=== PATIENT | female | born 1990 | race Caucasian/White ===

== ENCOUNTER 2020-11-15 16:15 | Outpatient (CLI) | payer BC, SELFPAY ==
--- NOTE | ~2020-11-15 | XR_ITS ---
EXAMINATION: XR foot LT min 3V DATE: 11/15/2020 16:43 INDICATION: Left foot pain TECHNIQUE: Dorsoplantar, lateral, and 2 oblique views of the left foot were obtained. COMPARISON: None. FINDINGS: There is no fracture. There is elongation of the anterior process of the calcaneus. The lat eral aspect of the navicular is elongated and tapered relative to the medial portion. The soft tissue s are unremarkable. IMPRESSION: 1. 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 Reviewed, dictated and finalized at location A. AD WEAVER
== END 2020-11-15 16:16 | disposition home or self-care (01) ==
LOC: ANHIMG 16:23
PROVIDERS: PCP Family Medicine; Visit Provider Physician Assistant
DX: M79.673 Pain in unspecified foot (principal)
CPT/HCPCS: 73630

== ENCOUNTER 2022-11-20 10:33 | Emergency (ER) | payer BC, SELFPAY ==
[2022-11-20 10:44] VITALS: BP 134/84; PULSE 94; RESP 16; TEMP 37.1; O2SAT 99
--- NOTE | 2022-11-20 11:41 | ED.URI ---
HPI - URI/Sore Throat General Chief Complaint: Upper Respiratory Infection Stated Complaint: uri Time Seen by Provider: 11/20/22 11:37 Source: patient and RN notes reviewed Mode of arrival: ambulatory Limitations: no limitations History of Present Illness HPI Narrative: 32 y/o female presented for c/o cough, nasal congestion and sore throat for about 3 days. Sputum is yellow. Ears are popping. Endorses feeling slightly better today. Denies sob, wheezing, n/v/d/f/c. Taking Zyrtec and flonase. Denies known sick contacts. Tested negative for covid yesterday. MD elicited complaint: cough Related Data Home Medications Medication Instructions Recorded Confirmed No Home Medications 10/20/19 11/20/22 Allergies Allergy/AdvReac Type Severity Reaction Status Date / Time No Known Allergies Allergy Verified 11/20/22 10:55 Review of Systems Review of Systems: CONSTITUTIONAL: Denies malaise, chills, sweats, fever EYES: Denies visual changes, redness, or discharge ENT: Reports rhinorrhea, congestion, sinus pain, otalgia, sore throat CARDIOVASCULAR: Denies chest pain, palpitations, edema RESPIRATORY: Reports cough, post nasal drainage. Denies dyspnea GASTROINTESTINAL: Denies abdominal pain, nausea, vomiting, diarrhea SKIN: Denies rash or itching MUSCULOSKELETAL: Denies myalgia NEUROLOGIC: Denies headache [facility] Past Medical History Medical History (Updated 11/20/22 @ 11:47 by Amy Hernandez, MUSTAPHA) Healthy adult Family History Family History Mother Alcoholic Father Bipolar 1 disorder Social History Social History Smoking status: Never smoker Second hand tobacco smoke exposure: No Alcohol intake: current Exam Narrative: GENERAL: midly Ill-appearing, nontoxic no acute distress. HEAD: Normocephalic EYES: PERRLA, conjunctivae clear ENT: Mucous membranes moist. TM pearly delcid with dull light reflex bilaterally; no tragal tenderness. Oropharynx erythematous tonsils 2+ without lesions or exudate, no drooling, no hoarseness, no trismus, uvula midline. No tripod positioning, muffled voice, soft palate or pharyngeal wall bulging NECK: Supple. No lymphadenopathy CHEST: Clear to auscultation, breath sounds equal. No wheezing, rhonchi, rales, or stridor. No respiratory distress, speaks in full sentences. HEART: Regular rate and rhythm. No murmur heard. SKIN: Warm, dry, no rash. NEURO: Alert and oriented x3. PSYCH: Normal mood and affect Course Course Emergency Course: Patient is aware of diagnosis, understands and agrees to treatment plan. Anticipatory guidance given. Patient agrees to follow-up as directed and is aware of reasons to seek care at the emergency department. Portions of this record may have been created with voice recognition software Level of Care: Express Care Visit Vital Signs Vital signs: Vital Signs Temperature 98.7 F 11/20/22 10:44 Pulse Rate 94 11/20/22 10:44 Respiratory Rate 16 11/20/22 10:44 Blood Pressure 134/84 11/20/22 10:44 Pulse Oximetry 99 11/20/22 10:44 Oxygen Delivery Room Air 11/20/22 10:44 Temperature 98.7 F 11/20/22 10:44 Pulse Rate 94 11/20/22 10:44 Respiratory Rate 16 11/20/22 10:44 Blood Pressure 134/84 11/20/22 10:44 Pulse Oximetry 99 11/20/22 10:44 Oxygen Delivery Room Air 11/20/22 10:44 reviewed MDM - URI/Sore Throat MDM Narrative Medical decision making narrative: Negative strep result reviewed with patient. Advised supportive measures and signs/symptoms to go to the ER. Pt is appropriate for outpt treatment and f/u. Differential Diagnosis Differential diagnosis: Likely upper respiratory infection, sinusitis, viral infection, bronchitis, influenza and pharyngitis Lab Data Labs: Strep Screen Presumptive Negative *(Reference Range: Negative)*
== END 2022-11-20 11:50 | disposition home or self-care (01) ==
PROVIDERS: Emergency Provider Nurse Practitioner Family; PCP Family Medicine
DX: J06.9 Acute upper respiratory infection, unspecified (principal)
CPT/HCPCS: 87081; 87880; 99213; G0463

== ENCOUNTER 2023-03-03 11:28 | Emergency (ER) | payer BC, SELFPAY ==
--- NOTE | ~2023-03-03 | XR_ITS ---
EXAMINATION: XR chest 2V 03/03/2023 12:02 INDICATION: Cough for 3 weeks PROCEDURE: 2 view chest COMPARISON: 11/04/2018 FINDINGS: The lungs are clear. The cardiomediastinal silhouette is within normal limits. There are no pleural effusions. There is no pneumothorax suspected. IMPRESSION: 1: NO ACUTE CARDIOPULMONARY DISEASE. Reviewed, dictated and finalized at location []
[2023-03-03 11:49] VITALS: BP 137/86; PULSE 74; RESP 16; TEMP 37; O2SAT 100
--- NOTE | 2023-03-03 12:50 | ED.URI ---
HPI - URI/Sore Throat General Chief Complaint: Upper Respiratory Infection Stated Complaint: Cough Time Seen by Provider: 03/03/23 12:50 Source: patient and RN notes reviewed Mode of arrival: ambulatory Limitations: no limitations History of Present Illness HPI Narrative: 32-year-old female presented for complaint of frequent cough for 3 weeks. Cough is productive of yellow sputum. Endorses left rib and mid chest pain associated with cough. She denies associated shortness of breath, wheezing, nausea, vomiting, diarrhea, fevers or chills. Denies nasal congestion. She is taking does some and Mucinex for symptoms. Denies sick contacts. MD elicited complaint: cough Related Data Home Medications Medication Instructions Recorded Confirmed Claritin 10 mg PO DAILY 03/03/23 03/03/23 etonogestrel 0.12 mg-ethinyl 1 vag ring vaginal DIRECTED 03/03/23 03/03/23 estradiol 0.015 mg/24 hr vaginal ring Allergies Allergy/AdvReac Type Severity Reaction Status Date / Time No Known Allergies Allergy Verified 03/03/23 12:06 Review of Systems Review of Systems: CONSTITUTIONAL: Denies malaise, chills, sweats, fever EYES: Denies visual changes, redness, or discharge ENT: Denies rhinorrhea, congestion, sinus pain, otalgia, sore throat CARDIOVASCULAR: Denies chest pain, palpitations, edema RESPIRATORY: Reports cough, Denies dyspnea, post nasal drainage. GASTROINTESTINAL: Denies abdominal pain, nausea, vomiting, diarrhea SKIN: Denies rash or itching MUSCULOSKELETAL: Denies myalgia NEUROLOGIC: Denies headache [facility] Past Medical History Medical History (Updated 03/03/23 @ 13:00 by Amy Hernandez APRN) Healthy adult Family History Family History Mother Alcoholic Father Bipolar 1 disorder Social History Social History Smoking status: Never smoker Second hand tobacco smoke exposure: No Alcohol intake: current Exam Narrative: GENERAL: well-appearing, nontoxic no acute distress. HEAD: Normocephalic EYES: PERRLA, conjunctivae clear ENT: Mucous membranes moist. TMs pearly delcid with dull light reflex bilaterally; no tragal tenderness. Oropharynx without lesions or exudate NECK: Supple. No lymphadenopathy CHEST: Clear to auscultation, breath sounds equal. No wheezing, rhonchi, rales, or stridor. No respiratory distress, speaks in full sentences. HEART: Regular rate and rhythm. No murmur heard. SKIN: Warm, dry, no rash. NEURO: Alert and oriented x3. PSYCH: Normal mood and affect Course Course Emergency Course: Patient is aware of diagnosis, understands and agrees to treatment plan. Anticipatory guidance given. Patient agrees to follow-up as directed and is aware of reasons to seek care at the emergency department. Portions of this record may have been created with voice recognition software Level of Care: Express Care Visit Vital Signs Vital signs: Vital Signs Temperature 98.6 F 03/03/23 11:49 Pulse Rate 74 03/03/23 11:49 Respiratory Rate 16 03/03/23 11:49 Blood Pressure 137/86 03/03/23 11:49 Pulse Oximetry 100 03/03/23 11:49 Oxygen Delivery Room Air 03/03/23 11:49 Temperature 98.6 F 03/03/23 11:49 Pulse Rate 74 03/03/23 11:49 Respiratory Rate 16 03/03/23 11:49 Blood Pressure 137/86 03/03/23 11:49 Pulse Oximetry 100 03/03/23 11:49 Oxygen Delivery Room Air 03/03/23 11:49 reviewed MDM - URI/Sore Throat MDM Narrative Medical decision making narrative: Results of chest x-ray reviewed with patient. Discussed physical exam findings and Rx's. Advised supportive measures and signs/symptoms to go to the ER. Pt is appropriate for outpt treatment and f/u. Differential Diagnosis Differential diagnosis: Likely upper respiratory infection, sinusitis and viral infection Imaging Data Radiologist's impression: Patient: Yolanda Esquivel
== END 2023-03-03 13:05 | disposition home or self-care (01) ==
PROVIDERS: Emergency Provider Nurse Practitioner Family; PCP Family Medicine
DX: R05.9 Cough, unspecified (principal)
CPT/HCPCS: 71046; 99213; G0463

== ENCOUNTER 2023-04-20 11:18 | Emergency (ER) | payer BC, SELFPAY ==
[2023-04-20 11:37] VITALS: BP 122/86; PULSE 91; RESP 18; TEMP 36.8; O2SAT 100
--- NOTE | 2023-04-20 11:38 | ED.URI ---
HPI - URI/Sore Throat General Chief Complaint: Upper Respiratory Infection Stated Complaint: sorethroat,bilateral pain Time Seen by Provider: 04/20/23 11:38 Source: patient, RN notes reviewed and old records reviewed Mode of arrival: ambulatory Limitations: no limitations History of Present Illness HPI Narrative: 32-year-old female presents to the [facility] with complaints of bilateral ear pain, worse on the left than the right. Also has increased postnasal drainage, sore throat. Has a history of seasonal allergies and takes Claritin daily Onset (ago): day(s) (2) Related Data Home Medications Medication Instructions Recorded Confirmed Claritin 10 mg PO DAILY 03/03/23 04/20/23 etonogestrel 0.12 mg-ethinyl 1 vag ring vaginal DIRECTED 03/03/23 04/20/23 estradiol 0.015 mg/24 hr vaginal ring Allergies Allergy/AdvReac Type Severity Reaction Status Date / Time No Known Allergies Allergy Verified 04/20/23 11:43 Review of Systems Review of Systems: All systems reviewed & are unremarkable except as noted in HPI and below Constitutional: Constitutional: Reports no additional constitutional complaints Eyes: Eyes: Reports no additional eye complaints ENT: Reports as per HPI, Reports otalgia and Reports sore throat Cardiovascular: Cardiovascular: Reports no additional cardiovascular complaints, Denies chest pain and Denies dyspnea Respiratory: Respiratory: Reports no additional respiratory complaints, Denies chest congestion, Denies cough and Denies dyspnea Gastrointestinal: Gastrointestinal: Reports no additional gastrointestinal complaints, Denies abdominal pain, Denies nausea and Denies vomiting Musculoskeletal: Musculoskeletal: Reports no additional musculoskeletal complaints Integumentary/Breasts: Skin/Breast: Reports system reviewed and no additional complaints, except as docu Neurologic: Reports system reviewed and no additional complaints, except as documented Psychiatric: Psychiatric: Reports no additional psychiatric complaints Allergic/Immunologic: Allergic/Immunologic: Reports no additional allergic/immunologic complaints PMFSH Past Medical History Medical History Healthy adult Family History Family History Mother Alcoholic Father Bipolar 1 disorder Social History Social History Smoking status: Never smoker Second hand tobacco smoke exposure: No Alcohol intake: current Comments At the time of my signature, I reviewed and agree with the nursing past medical, surgical, social, and family history. There is no relevant family history pertinent to the patient complaint. Exam Const: General: cooperative, healthy appearing, comfortable, no acute distress, well developed, alert and well nourished Nutritional Appearance: well nourished Orientation/consciousness: patient oriented x3 Limitations: no limitations HENMT: Head: normal to inspection Ears: hearing grossly normal bilaterally, external ears normal, TM normal on the right, EAC's normal and TM abnormal bulging on the left and erythematous on the left Face/Nose/Sinus: Normal external nose present, Normal nares present, Normal nasal mucous membranes and turbinates present and normal facial exam Face and sinus: normal facial exam Mouth: Yes Normal oral and palatal mucosa present, Yes lip normal and Yes moist mucous membranes Throat: posterior oropharynx normal and uvula midline Eyes: General: appearance normal, both eyes and all related structures Alignment and Position: alignment normal Periorbital: periorbital findings normal Pupils: Equal, round and reactive pupils present EOM: EOMs intact bilaterally Neck: Neck: normal visual inspection, full ROM, no lymphadenopathy and no meningeal signs Chest: Chest palpation & inspection: normal inspection of the chest Resp:
== END 2023-04-20 11:48 | disposition home or self-care (01) ==
PROVIDERS: Emergency Provider Nurse Practitioner; PCP Family Medicine
DX: H66.92 Otitis media, unspecified, left ear (principal)
CPT/HCPCS: 99213; G0463

== ENCOUNTER 2025-09-06 12:53 | Outpatient (CLI) | payer BC, SELFPAY ==
--- NOTE | ~2025-09-06 | US_ITS ---
EXAMINATION: US OB follow up DATE: 09/06/2025 13:46 INDICATION: Encounter for supervision abnormal TECHNIQUE: Real-time transabdominal obstetric ultrasound. FINDINGS: No prior studies for comparison. There is a single living fetus in vertex presentation. The placenta is anterior without placenta previa. ELLA is normal measuring 16.4 cm. cardiac activity and movement is noted with a heart rate of 124 beats per minute. The amniotic fluid volume is normal. Cervical length is 3.2 cm. The following biometric data were obtained: BPD: 89mm corresponds to gestational age 36 weeks 0 days. Head circumference: 337mm corresponds to gestational age 38 weeks 4 days. Abdominal circumference: 349mm corresponds to gestational age 38 weeks 6 days. Femur length: 77mm corresponds to gestational age 39 weeks 3 days. Estimated weight: 3530 grams +/- 529grams, 64% by Hadlock method. IMPRESSION: 1. Single living intrauterine in vertex presentation with an estimated gestational age of 38 weeks 2 days by current ultrasound. 2. Normal placenta. 3: Normal ELLA measures 16.4 cm. Reviewed, dictated and finalized at location O. COMPLIANCE MANAGER IMPRESSION: 1. Single living intrauterine in vertex presentation with an estimat ed gestational age of 38 weeks 2 days by current ultrasound. 2. Normal placenta. 3: Normal ELLA measures 16.4 cm.
== END 2025-09-06 12:54 | disposition home or self-care (01) ==
LOC: GOSHIMG 12:53
PROVIDERS: PCP Obstetrics & Gynecology; Visit Provider Obstetrics & Gynecology
DX: Z34.90 Encounter for supervision of normal pregnancy, unspecified, unspecified trimester (principal)
CPT/HCPCS: 76816

== ENCOUNTER 2025-09-07 10:06 | Observation (INO) | payer BC, SELFPAY ==
--- NOTE | 2025-09-07 10:06 | OBADM ---
This patient, Yolanda Tejada, admitted to the OB room Labor/Delivery/Recovery 108 for observation. Patient/family oriented to hospital policies and general routines including ID bracelet, bed and alarms, visiting hours, pain management, procedures, bathroom and other care routines, personal items, smoking policy, room service/diet, and visiting hours. Patient/Family are encouraged to report perceived risks to care and to ask questions if they do not understand what they are told or what they should do.
[2025-09-07 11:00] VITALS: BMI 24.2
[2025-09-07] MEDS: FAMOTIDINE 20 MG TABLET PO (12:14)
--- NOTE | 2025-09-12 07:58 | PM.OBTRLD ---
OB - Triage/Final Diagnosis Visit Information Date of evaluation: 09/07/25 Reason for evaluation: threatened labor Comments/Additional reasons for admission: I have assessed the risk for this patient, Yolanda Krunal Tejada, and determined that she would benefit from observation care.
== END 2025-09-07 12:25 | disposition home or self-care (01) ==
PROVIDERS: Admitting Provider Student in an Organized Health Care Education/Training Program; PCP Obstetrics & Gynecology; Visit Provider Student in an Organized Health Care Education/Training Program
DX: O47.1 False labor at or after 37 completed weeks of gestation (principal); Z3A.38 38 weeks gestation of pregnancy
CPT/HCPCS: A9270; G0378; G0379